=== PATIENT | female | born 1985 ===

== ENCOUNTER 2021-12-14 15:42 | Outpatient (CLI) | payer BC, SELFPAY ==
[2021-12-18 14:51] LABS: Chlamydia DNA Amplified* Not Detected (No Detected)
[2021-12-18 14:52] LABS: GC DNA Amplified* Not Detected (No Detected)
== END 2021-12-14 15:43 | disposition home or self-care (01) ==
LOC: LKVREF 12-18 14:41
PROVIDERS: Visit Provider Emergency Medicine
DX: M54.9 Dorsalgia, unspecified (principal); N39.0 Urinary tract infection, site not specified; N94.9 Unspecified condition associated with female genital organs and menstrual cycle
CPT/HCPCS: 87086; 87491; 87591

== ENCOUNTER 2023-05-16 16:18 | Outpatient (CLI) | payer BC, SELFPAY ==
[2023-05-16 22:26] LABS: Chlamydia DNA Amplified* NOT DETECTED (No Detected); GC DNA Amplified* NOT DETECTED (No Detected)
== END 2023-05-16 16:19 | disposition home or self-care (01) ==
PROVIDERS: Visit Provider Nurse Practitioner Family
DX: N94.9 Unspecified condition associated with female genital organs and menstrual cycle
CPT/HCPCS: 87086; 87110; 87140; 87491; 87591

== ENCOUNTER 2023-06-08 11:47 | Outpatient (CLI) | payer BC, SELFPAY | END 2023-06-08 11:48 | disposition home or self-care (01) | LOC: NFLDREF 06-09 09:28 | PROVIDERS: Visit Provider Nurse Practitioner Family | DX: R35.0 Frequency of micturition (principal); N76.0 Acute vaginitis | CPT/HCPCS: 87086 ==